=== PATIENT | female | born 1950 | race Caucasian/White ===

== ENCOUNTER 2021-08-11 10:47 | Inpatient (IN) | payer MEDICARE, MEDICAID ==
[~2021-08-11] VITALS: Ht 154.9 cm; Wt 59.0 kg
[2021-08-11 13:46] LABS: COLLECTION METHOD CATHETER
[2021-08-11] MEDS ORDERED: ABILIFY2 MG PO (13:48)
[2021-08-11] MEDS ORDERED: NORVASC 10MG10 MG PO (13:49)
[2021-08-11 13:52] LABS: MUCOUS Present (NOT PRESENT); PH 5 (5-8); SQUAMOUS EPITHELIAL 0-2 /hpf (0-10); URINE APPEARANCE Hazy (CLEAR/HAZY); URINE BACTERIA Rare (NONE SEEN); URINE BILIRUBIN Negative (NEGATIVE); URINE BLOOD Negative (NEGATIVE); URINE COLOR Yellow (YELLOW); URINE GLUCOSE Negative (NEGATIVE); URINE KETONE 1+ (NEGATIVE); URINE LEUKOCYTE ESTERASE Negative (NEGATIVE); URINE NITRATE Negative (NEGATIVE); URINE PROTEIN(semi-quant) Negative (NEGATIVE); URINE UROBILINOGEN Negative (NEGATIVE)
[2021-08-11] MEDS ORDERED: LIPITOR 10MG10 MG PO (14:28)
[2021-08-11] MEDS ORDERED: MELATONIN5 M1 PO (14:29)
[2021-08-11] MEDS ORDERED: MIRALAX PA17 GM/Dose PO (14:30)
[2021-08-11] MEDS ORDERED: THERA-M ENHANCE1 TAB PO (14:30)
[2021-08-11] MEDS ORDERED: MASON NATURAL2000 IU PO (14:31)
[2021-08-11] MEDS ORDERED: TYLENOL 325MG325 MG PO (14:32)
[2021-08-11] MEDS ORDERED: CYMBALTA 60MG60 MG PO (14:33)
[2021-08-11] MEDS ORDERED: FERROUS SU325 MG/TAB PO (14:33)
[2021-08-11] MEDS ORDERED: ATIVAN 0.50.5 MG/TAB PO (14:34)
[2021-08-11] MEDS ORDERED: NAMENDA 10MG TA10 MG PO (14:34)
[2021-08-11] MEDS ORDERED: INDERAL40 MG PO (14:35)
[2021-08-11] MEDS ORDERED: NEURONTIN300 MG/CAP PO (14:36)
--- NOTE | 2021-08-11 14:44 | NUR ---
PT TO ROOM 326 PER EMS, PT IS ALERT BUT CONFUSED X4. NON VERBAL. ASSESSMENTS COMPLETE. MED REQ COMPLETE.
[2021-08-11 15:00] VITALS: BP 149/84; PULSE 106; TEMP 97.3
--- NOTE | 2021-08-11 16:18 | NUR ---
DR ACOSTA SPOKE WITH PT'S DPOA AND SHE REFUSED SURGERY. PT TO RETURN TO [place] 08/12/21.
[2021-08-11 20:23] VITALS: BP 119/90; PULSE 111; TEMP 97.6
--- NOTE | 2021-08-11 22:45 | NUR ---
PT IS IN BED. GOWN ET LINENS ARE WET. PT HAS TAKEN OUT PERIPHERAL IV IN HER HAND. SITE IS PINK WITH A SCANT AMOUNT OF BLOOD. PT IS RESTLESS IN BED ET STATES REPEATEDLY "GET ME OUT OF HERE". PT IS ORIENTED ONLY TO SELF. ATTEMPTS MADE TO RE-ORIENT PT WITH NO SUCCESS. PT MOVES SELF ET LEGS IN BED FREQUENTLY, GRIMACES, SKIN IS PALE. PT IS RESISTANT TO CARES. ASSISTANCE IS NEEDED TO KEEP PT FROM MOVING ARM DURING IV INSERTION. THIS NURSE MAKES 2 UNSUCCESSFUL INSERTION ATTEMPT'S INTO PT'S LEFT HAND ET FOREARM. TIGIST BARTON SUCCESSFULLY INSERTS 22G IV INTO PT'S RIGHT FOREARM. PT'S IVF ARE RESTARTED. PT CONTINUES TO BE RESTLESS. IV MORPHINE GIVEN FOR PAIN. BED ALARM IS ON. CALL LIGHT WITHIN REACH.
--- NOTE | 2021-08-11 23:04 | NUR ---
PT IS NOW RESTING QUIETLY IN BED WITH EYES CLOSED. PT ASKED IF SHE FEELS BETTER ET PT CALMY STATES YES. RESPIRATIONS ARE UNLABORED. IVF INFUSING. PT HAS MITTS IN PLACE TO BILATERAL HANDS TO PREVENT PT FROM PULLING OUT IV. PARKER CATHETER DRAINING YELLOW URINE. BED ALARM IS ON. CALL LIGHT WITHIN REACH.
[2021-08-12 00:47] VITALS: BP 129/84; PULSE 79; TEMP 98.4
[2021-08-12 05:06] VITALS: BP 129/68; PULSE 76; TEMP 97.6
--- NOTE | 2021-08-12 06:05 | NUR ---
PT RESTING QUIETLY IN BED WITH EYES OPEN. PT DENIES PAIN, ANSWERS YES OR NO QUESTIONS ET STATES THANK YOU. PT IS ASSISTED TO DRINK SOME APPLE JUICE, SWALLOWS WITHOUT DIFFICULTY. PT IS ALERT BUT REMAINS ORIENTED ONLY TO SELF. SCDs ARE ON. RESPIRATIONS ARE UNLABORED. IVF INFUSING, PARKER CATHETER DRAINING CLEAR YOSEF URINE. BED ALARM ON. CALL LIGHT WITHIN REACH.
[2021-08-12 06:42] LABS: BASO % 0.5 % (0.0-2.0); EOS # 0.2 K/mm3 (0.0-0.7); EOS % 2.4 % (0-4.0); GRAN # 3.6 K/mm3 (1.4-6.5); GRAN % 56.9 % (42.2-75.2); HEMOGLOBIN 12.8 g/dl (12.5-16.0); LYMPH # 1.8 K/mm3 (1.2-3.4); LYMPH % 29.2 % (20.0-51.0); MEAN CELL VOLUME 96 fl (80.0-100.0); MEAN CORPUSCULAR HEMOGLOBIN 32 pg (27.0-31.0); MEAN CORPUSCULAR HGB CONC 33 g/dl (33.0-37.0); MEAN PLATELET VOLUME 10.3 fl (7.4-10.4); MONO # 0.7 K/mm3 (0.1-0.6); MONO % 10.5 % (1.7-9.3); PLATELET COUNT 285 K/mm3 (130-400); RED BLOOD COUNT 4.06 M/mm3 (4.10-5.30); REDCELL DISTRIBUTION WIDTH-CV 12.8 % (11.5-14.5)
[2021-08-12 07:02] LABS: INR 1.1 (0.8-3.0); PROTHROMBIN TIME 12.2 SECONDS (9.7-12.8)
[2021-08-12 07:09] LABS: ALBUMIN 2.8 gm/dL (3.4-4.8); BILIRUBIN,TOTAL 0.5 mg/dL (0.2-1.2); CALCIUM 9.5 mg/dL (8.4-10.2); CREATININE, serum 0.67 mg/dL (0.57-1.11); TOTAL PROTEIN 5.8 gm/dL (6.2-8.1)
[2021-08-12 08:07] VITALS: BP 150/68; PULSE 79; TEMP 97.9
--- NOTE | 2021-08-12 09:45 | NUR ---
Patient ate very small amount of breakfast, she was fed. Patient not willing to take medications, attempted multiple times, i did get her to take importance bp medication. patient converses minimally, unable to state name or birthday when asked. patient repositioned in bed. will moniotr. high fall risk followed.
[2021-08-12 11:48] VITALS: BP 126/60; PULSE 69; TEMP 97.4
--- NOTE | 2021-08-12 12:16 | NUR ---
Nursing Care Partner collaborated with Hospitalist who advised patient and family have decided not to pursue surgery. Patient is ready to be discharged back to [facility] today. SANJANA contacted patient's daughter, Fariha who reports she is patient's DPOA-HC. SANJANA advised Fariha that patient will return to [facility] and she is in agreement. SANJANA contacted Amanda at [facility] and faxed clinical updates. Transport time was set for 1300. SANJANA attempted to contact Fariha again to give transport time and left a message. SANJANA faxed discharge orders and discharge summary to [facility]. Discharge Plan: [facility] today.
[2021-08-12 12:56] VITALS: BP 126/60; PULSE 69; TEMP 97.4
--- NOTE | 2021-08-12 13:15 | NUR ---
PATIENT READY FOR DISCHARGE. ORDERS OBTAINED. REPORT CALLED TO NURSE AT [facility]. ALL QUESTIONS ANSWERED. PATIENT DRESSED & TRANSFERRED TO WHEELCHAIR 3 ASSIST. BREIF ON, PARKER WAS REMOVED. INT DC. TELE OFF. PATIENT NOT COOPERTIVE.
== END 2021-08-12 13:21 | DRG 536 ==
LOC: SURG 10:47
PROVIDERS: Physician Assistant; ADMIT Internal Medicine
DX: S72.002A Fracture of unspecified part of neck of left femur, initial encounter for closed fracture (principal); F02.81 Dementia in other diseases classified elsewhere, unspecified severity, with behavioral disturbance; G31.83 Neurocognitive disorder with Lewy bodies; I10 Essential (primary) hypertension; E78.5 Hyperlipidemia, unspecified; I48.91 Unspecified atrial fibrillation; F32.9 Major depressive disorder, single episode, unspecified; D50.9 Iron deficiency anemia, unspecified; G47.00 Insomnia, unspecified; K59.00 Constipation, unspecified; R25.1 Tremor, unspecified; G62.9 Polyneuropathy, unspecified; W19.XXXA Unspecified fall, initial encounter; Y93.89 Activity, other specified; Y92.10 Unspecified residential institution as the place of occurrence of the external cause; Z91.81 History of falling; Z74.01 Bed confinement status; Z99.3 Dependence on wheelchair
CPT/HCPCS: 99239; J1650; J7030